=== PATIENT | female | born 1970 | race Caucasian/White ===

== ENCOUNTER 2017-01-19 18:42 | Emergency (ER) | payer BC ==
[2017-01-19] MEDS ORDERED: PROPARACAINE 0.5% OPHTH DROPS 15 ML BTL RIGHT EYE STA (19:09)
--- NOTE | 2017-01-19 19:26 | ED ---
General Adult HPI - General Chief complaint: Eye Problems Stated complaint: eye injury Time Seen by Provider: 01/19/17 19:06 Source: patient, RN notes reviewed Mode of arrival: ambulatory Limitations: no limitations - History of Present Illness Initial comments: Patient 46-year-old female who presents emergency room today with a chief complaint of a injury to the right eye. Does admit that she went to bend down and the top of a paperboard boxes estimator underneath her glasses causing injury to the right eye. Patient does admit that vision has states same. 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 Patient denies any other complaints or symptoms. She states her tetanus is up-to-date. - Related Data Previous Rx's Medication Instructions Recorded Tobramycin 0.3% Ophth Soln [Tobrex 1 - 2 drop BOTH EYES QID 7 Days 01/19/17 0.3% Ophth Soln] Allergies Allergy/AdvReac Type Severity Reaction Status Date / Time Penicillins AdvReac Unknown Verified 01/19/17 19:11 Review of Systems ROS Statement: Those systems with pertinent positive or pertinent negative responses have been documented in the HPI. ROS Other: All systems not noted in ROS Statement are negative. Past Medical History Past Medical History: No Reported History History of Any Multi-Drug Resistant Organisms: None Reported Past Surgical History: No Surgical Hx Reported Past Psychological History: No Psychological Hx Reported Smoking Status: Never smoker Past Alcohol Use History: None Reported Past Drug Use History: None Reported General Exam - General Exam Comments Initial Comments: General: The patient is awake and alert, in no distress, and does not appear acutely ill. Eye: Pupils are equal, round and reactive to light, extra-ocular movements are intact. No nystagmus. There is normal conjunctiva bilaterally. No signs of icterus. Ears, nose, mouth and throat: There are moist mucous membranes and no oral lesions. Neck: The neck is supple, there is no tenderness or JVD. Cardiovascular: There is a regular rate and rhythm. No murmur, rub or gallop is appreciated. Respiratory: Lungs are clear to auscultation, respirations are non-labored, breath sounds are equal. No wheezes, stridor, rales, or rhonchi. Musculoskeletal: Normal ROM, no tenderness. Strength 5/5. Sensation intact. Pulses equal bilaterally 2+. Neurological: A&O x 3. CN II-XII intact, There are no obvious motor or sensory deficits. Coordination appears grossly intact. Speech is normal. Skin: Skin is warm and dry and no rashes or lesions are noted. Psychiatric: Cooperative, appropriate mood & affect, normal judgment. Limitations: no limitations Course Vital Signs 01/19/17 19:06 Temperature 98.2 F Pulse Rate 77 Respiratory 18 Rate Blood Pressure 182/78 O2 Sat by Pulse 100 Oximetry Procedures - Procedures Initial comment: Patient's right eye was anesthetized locally with proparacaine drops. This did relieve her symptoms. Patient's right eye was then stained with fluorescein checked with Wood's lamp which reveals a corneal abrasion from the 10:00 to 1 o' clock position. Medical Decision Making - Medical Decision Making Started on antibiotic drops. Advised to continue Tylenol for pain. Advised follow-up with her charge machine operator in the next 1-2 days. Disposition Clinical Impression: Corneal abrasion Disposition: HOME SELF-CARE Condition: Good Instructions: Corneal Abrasion (ED) Additional Instructions: Please use antibiotic drops as prescribed. Please use artificial tears for comfort as needed. Please use Tylenol for pain. Please follow-up with the charge machine operator over the next 2 days. Please to emergency room for any other concerns. Prescriptions: Tobramycin 0.3% Ophth Soln [Tobrex 0.3% Ophth Soln] 1 - 2 drop BOTH EYES QID 7 Days Referrals: Nonstaff,Physician [Primary Care Provider] - 1-2 days Time of Disposition: 19:24
[2017-01-19 19:29] VITALS: BP 182/78; PULSE 77; RESP 18; TEMP 98.2
== END 2017-01-19 19:33 | disposition home or self-care (01) ==
LOC: EC 18:42
DX: S05.01XA Injury of conjunctiva and corneal abrasion without foreign body, right eye, initial encounter (principal); X58.XXXA Exposure to other specified factors, initial encounter; E11.9 Type 2 diabetes mellitus without complications; Z88.0 Allergy status to penicillin
CPT/HCPCS: 99283